=== PATIENT | female | born 1945 | race Caucasian/White ===

== ENCOUNTER → 2017-03-10 | Outpatient (CLI) | payer MEDICARE, BC ==
[~2017-03-10] MED LIST: 3N1 COMMODE MC; ASPI-781 PO; ATOR20TA38 PO; DILT180C76 PO; LOSA25TA5 PO; METF-406 PO; METFORMIN HCL ER PO; NATEGLINIDE PO; OXYC-481 PO; PANT40TA4 PO; TRAM50TA2 PO; WALK1EAC23 MC
--- NOTE | 2017-03-11 10:03 | RADRPT ---
PROCEDURE: XR pelvis and bilateral hips. CLINICAL INDICATION: Pain TECHNIQUE: AP pelvis, and AP and lateral views of the bilateral hips were performed. COMPARISON: 03/04/2016 FINDINGS: Bilateral hip arthroplasties. No acute fracture or dislocation seen. 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 Small calcifications in the right lower pelvis could represent uterine fi broid calcifications. IMPRESSION: Bilateral hip arthroplasties. No acute abnormality seen. RPTAT: HJES .Trav Bob MD, MD Date Time Electronically viewed and signed by .Trav Bob MD, MD on 03/11/2017 01:43 .S/
== END | disposition home or self-care (01) ==
LOC: HKI 10:38
PROVIDERS: ATTEND Orthopaedic Surgery
DX: Z47.89 Encounter for other orthopedic aftercare (principal); Z96.643 Presence of artificial hip joint, bilateral
CPT/HCPCS: 73502; G0463